=== PATIENT | male | born 1975 | race Caucasian/White ===

== ENCOUNTER 2019-04-02 17:38 | Emergency (ER) | payer OTHER ==
[~2019-04-02] VITALS: Ht 180.3 cm; Wt 136.1 kg
--- NOTE | 2019-04-02 17:52 | ED General ---
General Stated Complaint: DIZZY History of Present Illness Date Seen by Provider: Apr 02, 2019 Time Seen by Provider: 17:49 Initial Comments Patient presents emergency department for evaluation of room spinning sensation that started earlier today while he was driving his vehicle. Patient said that he may have turned his head and all of a sudden became extremely vertiginous and drink some water and vomited everything back up. He says that he lost hearing out of his right ear approximately 2 months ago and saw a specialist and had an MRI done and is tested come back unremarkable and he was started on steroids but he says he still cannot hear out of his right ear. He went to a clinic in [place] and they told him that he needs to have electrolytes done as only symptoms started after being on the Keto diet and they wanted to have his electrolytes checked. Patient was able to ambulatory to the room with no difficulty. He says he does feel slightly off balance. (KOKO KESSLER DO) Allergies and Home Medications Allergies Coded Allergies: No Known Drug Allergies (Unverified , 04/02/19) Home Medications Meclizine HCl 25 Mg Tablet, 25 MG PO Q6H PRN for DIZZINESS Prescribed by: FABRIZIO JONES on 04/02/192015 Multivitamin 1 Each Tablet, 1 EACH PO DAILY, (Reported) Patient Home Medication List Home Medication List Reviewed: Yes (KOKO KESSLER DO) Review of Systems Review of Systems Constitutional: no symptoms reported EENTM: hearing loss Respiratory: no symptoms reported Cardiovascular: no symptoms reported Gastrointestinal: nausea, vomiting Genitourinary: no symptoms reported Musculoskeletal: no symptoms reported Skin: no symptoms reported Psychiatric/Neurological: Other (vertigo) (KOKO KESSLER DO) All Other Systems Reviewed Negative Unless Noted: Yes (KOKO KESSLER DO) Past [id number]-[id number] Hx Patient Social History Recent Foreign Travel: No Contact w/Someone Who Travel: No (KOKO KESSLER DO) Physical Exam Vital Signs Vital Signs - First Documented 04/02/19 17:42 Temp 97.5 Pulse 80 Resp 16 B/P (MAP) 128/88 (101) Pulse Ox 98 O2 Delivery Room Air (FABRIZIO PADILLA MD) Vital Signs Capillary Refill : (KOKO KESSLER DO) Height, Weight, BMI Height: '" Weight: lbs. oz. kg; BMI Method: General Appearance: No Apparent Distress, WD/WN HEENT: PERRL/EOMI, Other (nystagmus on right gaze) Respiratory: No Respiratory Distress Cardiovascular: Regular Rate, Rhythm Gastrointestinal: Non Tender Extremity: Normal Capillary Refill Neurologic/Psychiatric: Alert, Oriented x3, No Motor/Sensory Deficits Skin: Normal Color, Warm/Dry (KOKO KESSLER DO) Procedures/Interventions Progress Right ear was irrigated by this provider with warm water with a small amount of hydrogen peroxide. Irrigation was performed with a large syringe and an 18- gauge IV catheter. A large chunk of cerumen was evacuated. Reexamination of the ear after irrigation revealed no residual cerumen. Patient's hearing improved after the procedure. (FABRIZIO PADILLA MD) Progress/Results/Core Measures Suspected Sepsis SIRS Temperature: Pulse: Respiratory Rate: Blood Pressure / Mean: (KOKO KESSLER ) Results/Orders Lab Results Laboratory Tests Test 04/02/19 18:00 Range/Units White Blood Count 12.6 H 4.3-11.0 10^3/uL Red Blood Count 5.76 4.35-5.85 10^6/uL Hemoglobin 16.6 13.3-17.7 G/DL Hematocrit 50 40-54 % Mean Corpuscular Volume 87 80-99 FL Mean Corpuscular Hemoglobin 29 25-34 PG Mean Corpuscular Hemoglobin Concent 33 32-36 G/DL Red Cell Distribution Width 13.8 10.0-14.5 % Platelet Count 237 130-400 10^3/uL Mean Platelet Volume 10.1 7.4-10.4 FL Neutrophils (%) (Auto) 89 H 42-75 % Lymphocytes (%) (Auto) 6 L 12-44 % Monocytes (%) (Auto) 4 0-12 % Eosinophils (%) (Auto) 0 0-10 % Basophils (%) (Auto) 0 0-10 % Neutrophils # (Auto) 11.2 H 1.8-7.8 X 10^3 Lymphocytes # (Auto) 0.8 L 1.0-4.0 X 10^3 Monocytes # (Auto) 0.5 0.0-1.0 X 10^3 Eosinophils # (Auto) 0.0 0.0-0.3 10^3/uL Basophils # (Auto) 0.1 0.0-0.1 10^3/uL Neutrophils % (Manual) 85 % Lymphocytes % (Manual) 3 % Monocytes % (Manual) 0 % Eosinophils % (Manual) 1 % Basophils % (Manual) 0 % Band Neutrophils 11 % Sodium Level 141 135-145 MMOL/L Potassium Level 4.2 3.6-5.0 MMOL/L Chloride Level 101 98-107 MMOL/L Carbon Dioxide Level 21 21-32 MMOL/L Anion Gap 19 H 5-14 MMOL/L Blood Urea Nitrogen 16 7-18 MG/DL Creatinine 1.05 0.60-1.30 MG/DL Estimat Glomerular Filtration Rate > 60 BUN/Creatinine Ratio 15 Glucose Level 112 H 70-105 MG/DL Calcium Level 10.2 H 8.5-10.1 MG/DL Corrected Calcium 9.8 8.5-10.1 MG/DL Magnesium Level 2.2 1.6-2.4 MG/DL Total Bilirubin 0.5 0.1-1.0 MG/DL Aspartate Amino Transf (AST/SGOT) 25 5-34 U/L Alanine Aminotransferase (ALT/SGPT) 33 0-55 U/L Alkaline Phosphatase 92 40-136 U/L Total Protein 7.6 6.4-8.2 GM/DL Albumin 4.5 3.2-4.5 GM/DL (FABRIZIO PADILLA MD) My Orders Orders - FABRIZIO PADILLA MD Docusate Sodium Capsule (Colace Capsule) (04/02/19 19:45) (FABRIZIO PADILLA MD) Medications Given in ED Current Medications Medications Dose Ordered Sig/Indira Route Start Time Stop Time Status Last Admin Dose Admin Diazepam 5 mg ONCE ONCE PO 04/02/19 18:00 04/02/19 18:01 DC 04/02/19 18:07 5 MG Meclizine HCl 25 mg ONCE ONCE PO 04/02/19 18:00 04/02/19 18:01 DC 04/02/19 18:07 25 MG Ondansetron HCl 4 mg ONCE ONCE IVP 04/02/19 18:00 04/02/19 18:01 DC 04/02/19 18:06 4 MG (FABRIZIO PADILLA MD) Vital Signs/I&O 04/02/19 17:42 Temp 97.5 Pulse 80 Resp 16 B/P (MAP) 128/88 (101) Pulse Ox 98 O2 Delivery Room Air (FABRIZIO PADILLA MD) Vital Signs/I&O Capillary Refill : (KOKO KESSLER DO) Progress Note : Progress Note Symptoms are most consistent with a peripheral vertigo in my opinion I will go ahead and check basic labs treat with meclizine and Valium Zofran and reassess. Transfer of care to Dr. Jones at 1800 (KOKO KESSLER DO) Progress Note : Time: 20:23 Progress Note Care of this patient was assumed at shift change. Labs were reviewed and were unremarkable except for mild leukocytosis which may be related to prednisone use. Patient was examined with a thorough neurologic exam. There were no focal deficits identified. He did have some subtle nystagmus with rightward gaze. Sloan-Hallpike was negative in both directions. Patient's symptoms did improve with treatment. He describes some slight lightheadedness but no vertigo sensations. He was asymptomatic with Swapna-Hallpike. HEENT exam revealed cerumen impaction on the right. This was removed with irrigation. Warm water with a small amount of hydrogen peroxide was used for the irrigation. An 18-gauge IV catheter and a large syringe were used to irrigate. A large cerumen clump was evacuated. Reexamination of the ear revealed no residual cerumen. The patient's hearing did improve after this. (FABRIZIO PADILLA MD) Departure Impression Primary Impression: Vertigo Additional Impression: Right ear impacted cerumen Disposition: 01 HOME, SELF-CARE Condition: Improved Departure-Patient Inst. Decision time for Depature: 20:14 (FABRIZIO PADILLA MD) Referrals: NO,LOCAL PHYSICIAN (PCP) Primary Care Physician Patient Instructions: Vertigo (a Type of Dizziness) (DC) Add. Discharge Instructions: You may take meclizine as prescribed for dizziness. Return to the ER promptly or call 911 if you have recurrent vertigo/dizziness that is accompanied by confusion, changes in vision, weakness or numbness of part of the body, loss of balance or inability to walk, or other new or concerning symptoms. Follow-up with your primary care provider as soon as possible. Scripts Ondansetron (Ondansetron Odt) 4 Mg Tab.rapdis 4 MG SL Q4H PRN for NAUSEA/VOMITING, #10 TAB Prov: FABRIZIO PADILLA MD 04/02/19 Meclizine HCl (Meclizine HCl) 25 Mg Tablet 25 MG PO Q6H PRN for DIZZINESS, #20 TAB Prov: FABRIZIO PADILLA MD 04/02/19 KOKO KESSLER DO Apr 02, 2019 17:52 FABRIZIO PADILLA MD Apr 02, 2019 20:16
[2019-04-02] MEDS ORDERED: MECLIZINE 25 MG (ANTIVERT) TAB PO ONE (18:00)
[2019-04-02] MEDS ORDERED: DIAZEPAM 5 MG (VALIUM) TABLET PO ONE (18:00)
[2019-04-02] MEDS ORDERED: ONDANSETRON 4 MG/2 ML (SDV) Z0FRAN IVP ONE (18:00)
[2019-04-02 18:16] LABS: HEMATOCRIT 50 % (40-54); HEMOGLOBIN 16.6 G/DL (13.3-17.7); MEAN CORPUSCULAR HEMOGLOBIN 29 PG (25-34); MEAN CORPUSCULAR VOLUME 87 FL (80-99); WHITE BLOOD COUNT 12.6 10^3/uL (4.3-11.0)
[2019-04-02 18:17] LABS: BASOPHILS # (AUTO) 0.1 10^3/uL (0.0-0.1); BASOPHILS % (AUTO) 0 % (0-10); EOSINOPHILS % (AUTO) 0 % (0-10); LYMPHOCYTES # (AUTO) 0.8 X 10^3 (1.0-4.0); LYMPHOCYTES % (AUTO) 6 % (12-44); MEAN CORPUSCULAR HGB CONC 33 G/DL (32-36); MEAN PLATELET VOLUME 10.1 FL (7.4-10.4); MONOCYTES # (AUTO) 0.5 X 10^3 (0.0-1.0); MONOCYTES % (AUTO) 4 % (0-12); NEUTROPHILS # (AUTO) 11.2 X 10^3 (1.8-7.8); NEUTROPHILS % (AUTO) 89 % (42-75); PLATELET COUNT 237 10^3/uL (130-400); RED CELL DISTRIBUTION WIDTH 13.8 % (10.0-14.5)
[2019-04-02] MEDS ORDERED: MULT-974 PO (18:18)
[2019-04-02 18:36] LABS: CHLORIDE 101 MMOL/L (98-107); POTASSIUM 4.2 MMOL/L (3.6-5.0); SODIUM 141 MMOL/L (135-145)
[2019-04-02 18:37] LABS: ALANINE AMINOTRANSFERASE 33 U/L (0-55); ALBUMIN 4.5 GM/DL (3.2-4.5); ALKALINE PHOSPHATASE 92 U/L (40-136); BILIRUBIN,TOTAL 0.5 MG/DL (0.1-1.0); BUN/CREATININE RATIO 15; CALCIUM 10.2 MG/DL (8.5-10.1); CARBON DIOXIDE 21 MMOL/L (21-32); CREATININE SERUM 1.05 MG/DL (0.60-1.30); GFR ESTIMATED > 60; GLUCOSE 112 MG/DL (70-105); MAGNESIUM 2.2 MG/DL (1.6-2.4); TOTAL PROTEIN 7.6 GM/DL (6.4-8.2)
[2019-04-02 18:48] LABS: BAND NEUTROPHILS 11 %; BASOPHILS % (MANUAL) 0 %; EOSINOPHILS % (MANUAL) 1 %; LYMPHOCYTES % (MANUAL) 3 %; MONOCYTES % (MANUAL) 0 %; NEUTROPHILS % (MANUAL) 85 %
[2019-04-02] MEDS ORDERED: DOCUSATE SODIUM 100 MG (COLACE) CAP PO ONE (19:45)
[2019-04-02] MEDS ORDERED: MECL-106 PO (20:16)
[2019-04-02] MEDS ORDERED: ONDA4TAB11 SL (20:25)
[2019-04-02 20:29] VITALS: BP 127/72
== END 2019-04-02 20:30 | disposition home or self-care (01) ==
LOC: ER FS 17:39 → MERGE 17:39 → ER FS 20:30
DX: H61.21 Impacted cerumen, right ear (principal); R42 Dizziness and giddiness
CPT/HCPCS: 36415; 80053; 83735; 85007; 85027